=== PATIENT | female | born 1980 | race Caucasian/White ===

== ENCOUNTER 2018-10-01 08:05 | Day surgery (SDC) | payer OTHER ==
[2018-10-01] MEDS ORDERED: ULTRACET PO (12:34)
[2018-10-01] MEDS ORDERED: MIRALAX17 GM PO (12:35)
[2018-10-01] MEDS ORDERED: KETO10TA2 PO (12:35)
[2018-10-01] MEDS ORDERED: ZOFRAN ODT4 MG PO (12:36)
[2018-10-01] MEDS ORDERED: ZANTAC150 M3 PO (12:48)
== END 2018-10-01 16:20 | disposition home or self-care (01) ==
LOC: CIR.AMB 08:05
DX: K42.0 Umbilical hernia with obstruction, without gangrene (principal); K43.6 Other and unspecified ventral hernia with obstruction, without gangrene